=== PATIENT | female | born 1985 | race Caucasian/White ===

== ENCOUNTER 2024-05-06 08:46 | Emergency (ER) | payer OTHER, SELFPAY ==
--- NOTE | ~2024-05-06 | XR_ITS ---
XR toe 4th RT min 2V Ordering provider: Terrie London APRN History: . injury . Comparison: None. FINDINGS: BONES: No acute fracture or dislocation. JOINT SPACES: Normal. SOFT TISSUES: Normal. IMPRESSION: No acute osseous abnormality. Reviewed, dictated and finalized at location A.
--- NOTE | 2024-05-06 08:57 | ED.LOWEXIN ---
HPI - Extremity Injury (Lower) General Chief Complaint: Extremity Injury, Lower Stated Complaint: INJURED R TOE Source: patient Mode of arrival: ambulatory Limitations: no limitations History of Present Illness HPI Narrative: 38 y/o female presented for c/o right 4th toe pain after injury last night. States the toe was tangled in the bed covers, and the 'foot went one way and the toe went the other.' Since then she reports pain 4/10 at rest, 9/10 with walking. Endorses some bruising and swelling to the toe. History of surgery to the right foot. Related Data Home Medications Medication Instructions Recorded Confirmed drospirenone 3 mg-ethinyl 1 tablet PO DAILY 05/06/24 05/06/24 estradiol 0.03 mg tablet lisdexamfetamine 30 mg capsule 30 mg PO DAILY 05/06/24 05/06/24 (Vyvanse) Allergies Allergy/AdvReac Type Severity Reaction Status Date / Time No Known Allergies Allergy Verified 05/06/24 09:04 Review of Systems Review of Systems: CONSTITUTIONAL: Denies body aches, fever, chills CARDIOVASCULAR: Denies chest pain, palpitations, or edema. RESPIRATORY: Denies cough or dyspnea. SKIN: Denies rash, itching, or wounds. MUSCULOSKELETAL: reports right toe pain NEUROLOGIC: Denies numbness, tingling, or weakness. All systems reviewed & are unremarkable except as noted in HPI and below PMFSH Comments At time of signature, I have reviewed and agree with nursing past medical, surgical, social and family history unless otherwise noted. Please see nursing chart for further information. There is no relevant family history pertinent to the presenting complaint Exam Narrative: GENERAL: Well-appearing CHEST: Speaks in full sentences. No respiratory distress. HEART: Regular Right foot has normal strength and sensation, normal range of motion at ankle and toes. Endorses pain with movement of right 4th toe, mild swelling and ecchymosis to the IP joint, tenderness with palpation. No open wounds, or obvious deformity; alignment normal, pulse palpable and equal bilaterally, skin warm, dry, pink. Capillary refill less than 3 seconds. SKIN: Warm, dry NEURO: Alert and oriented x3. PSYCH: Normal mood and affect Course Course Emergency Course: Patient is aware of diagnosis, understands and agrees to treatment plan. Anticipatory guidance given. Patient agrees to follow-up as directed and is aware of reasons to seek care at the emergency department. Portions of this record may have been created with voice recognition software Level of Care: Express Care Visit Vital Signs Vital signs: Vital Signs Temperature 97.4 F L 05/06/24 08:58 Pulse Rate 78 05/06/24 08:58 Respiratory Rate 16 05/06/24 08:58 Blood Pressure 131/93 H 05/06/24 08:58 Pulse Oximetry 100 05/06/24 08:58 Temperature 97.4 F L 05/06/24 08:58 Pulse Rate 78 05/06/24 08:58 Respiratory Rate 16 05/06/24 08:58 Blood Pressure 131/93 H 05/06/24 08:58 Pulse Oximetry 100 05/06/24 08:58 Oxygen Delivery Room Air 05/06/24 09:00 Reviewed MDM - Extremity Injury (Lower) MDM Narrative Medical decision making narrative: Discussed physical exam findings and x-ray of toe with pt . Declines post op shoe stating she has several boots/shoes at home due to previous surgeries. Advised supportive measures and signs/symptoms to go to the ER. Pt is appropriate for outpt treatment and f/u. Differential Diagnosis Differential diagnosis: Likely other (toe fracture, dislocation, contusion) Imaging Data Radiologist's impression: Patient: Dorene Nayak : 1985 MR#: [id number] Age: 38 Acct:[id number] Loc: [facility] ADM Date: 05/06/24Attending Dr: Ordering Physician: Terrie London APRN Date of Service: 05/06/24 Procedure(s): XR toe 4th RT min 2V Accession Number(s): [id number] cc: Bandar,Emmanuel; Terrie London APRN~ XR toe 4th RT min 2V Ordering provider: Terrie London APRN History: . in
[2024-05-06 08:58] VITALS: BP 131/93; PULSE 78; RESP 16; TEMP 36.3; O2SAT 100
== END 2024-05-06 09:34 | disposition home or self-care (01) ==
PROVIDERS: Emergency Provider Nurse Practitioner Family
DX: S93.504A Unspecified sprain of right lesser toe(s), initial encounter (principal); X58.XXXA Exposure to other specified factors, initial encounter; F90.9 Attention-deficit hyperactivity disorder, unspecified type
CPT/HCPCS: 73660; 99203; G0463

== ENCOUNTER 2024-10-30 08:32 | Emergency (ER) | payer OTHER, SELFPAY ==
--- NOTE | ~2024-10-30 | XR_ITS ---
EXAMINATION: XR chest 2V 10/30/2024 09:15 INDICATION: Cough with shortness of breath PROCEDURE: 2 view chest COMPARISON: No prior studies for comparison. FINDINGS: The lungs are clear. The cardiomediastinal silhouette is within normal limits. There are no pleural effusions. There is no pneumothorax suspected. IMPRESSION: 1: NO ACUTE CARDIOPULMONARY DISEASE. Reviewed, dictated and finalized at location A. ENTATION DESIGNER
[2024-10-30 08:50] VITALS: BP 134/96; PULSE 81; RESP 16; TEMP 36.6; O2SAT 100
--- NOTE | 2024-10-30 08:52 | ED.URI ---
HPI - URI/Sore Throat General Chief Complaint: Upper Respiratory Infection Stated Complaint: sorethroat, chest congestion Time Seen by Provider: 10/30/24 08:52 Source: patient Mode of arrival: ambulatory Limitations: no limitations History of Present Illness HPI Narrative: 39-year-old female presents with complaint of cough and congestion for 3-4 days. Started with a sore throat but sore throat has resolved. Afebrile. Reports chest congestion and shortness of breath in the morning. Taking [id number] medications to treat symptoms. All systems reviewed and negative except as noted above. Related Data Home Medications ?Medication ?Instructions ?Recorded ?Confirmed ?Last Taken ?Type drospirenone 3 mg-ethinyl 1 tablet PO DAILY 05/06/24 10/30/24 Unknown History estradiol 0.03 mg tablet lisdexamfetamine 30 mg capsule 30 mg PO DAILY 05/06/24 10/30/24 Unknown History (Vyvanse) Allergies Allergy/AdvReac Type Severity Reaction Status Date / Time No Known Allergies Allergy Verified 10/30/24 08:44 Review of Systems Review of Systems: CONSTITUTIONAL: Denies fever, chills, or sweats. Reports fatigue. EYES: Denies visual changes, redness, or discharge. ENT: Reports rhinorrhea, congestion. Denies sore throat, or otalgia. CARDIOVASCULAR: Denies chest pain, palpitations, or edema. RESPIRATORY: Reports cough and dyspnea with exertion. GASTROINTESTINAL: Denies abdominal pain, nausea, vomiting, or diarrhea. GENITOURINARY: Denies dysuria or hematuria. SKIN: Denies rash or itching. MUSCULOSKELETAL: Denies back pain, joint pain, or myalgia. NEUROLOGIC: Denies headache, numbness, or weakness. PSYCHIATRIC: Denies anxiety or depression. All other systems reviewed are negative, except as documented in HPI. PMFSH Comments At time of signature, agree with nursing past medical, surgical, social and family history. There is no relevant family history pertinent to the presenting complaint. Exam Narrative: GENERAL: This is a well-nourished, well-developed patient, in no apparent distress. HEAD: normocephalic, atraumatic. EYES: PERRL. Sclera clear/white. Vision is grossly intact. EARS: External ears normal, auditory canals clear and without drainage, TMs normal without perforation. Hearing grossly intact. NOSE: External nose normal mild congestion with clear nasal drainage THROAT: Mucous membranes moist, mild erythema with clear postnasal drainage. No swelling or exudates. NECK: Neck supple, non-tender without lymphadenopathy, masses or thyromegaly. CARDIOVASCULAR: Regular rate and rhythm without murmurs, gallops, or rubs. RESPIRATORY: Clear to auscultation. Breath sounds equal bilaterally. No wheezes, rales, or rhonchi. SKIN: warm, Dry, intact with no suspicious lesions or rash, good texture and turgor. NEURO: awake, alert, and oriented to person, place and time. There were no obvious focal neurologic abnormalities. EXTREMITIES: No joint tenderness, effusion, or edema noted. Course Course Level of Care: Express Care Visit Vital Signs Vital signs: Vital Signs Temperature 36.6 C 10/30/24 08:50 Pulse Rate 81 10/30/24 08:50 Respiratory Rate 16 10/30/24 08:50 Blood Pressure 134/96 H 10/30/24 08:50 Pulse Oximetry 100 10/30/24 08:50 Temperature 36.6 C 10/30/24 08:50 Pulse Rate 81 10/30/24 08:50 Respiratory Rate 16 10/30/24 08:50 Blood Pressure 134/96 H 10/30/24 08:50 Pulse Oximetry 100 10/30/24 08:50 Reviewed MDM - URI/Sore Throat MDM Narrative Medical decision making narrative: Negative COVID, influenza and strep testing. Strep culture ordered. Chest x-ray negative. Recommend patient continue [id number] medications to treat viral symptoms. Well-appearing, nontoxic. Patient is aware of diagnosis, understands and agrees to treatment plan. Anticipatory guidance given. Patient agrees to follow-up as directed and is aware of reasons to seek care at the emergency department. Portions of this record may have been created with voice recognition software Differential Diagnosis Differential diagnosis: Likely upper respiratory infection, sinusitis, viral infection and influenza Lab Data Labs: Lab Results 10/30/24 10/30/24 Range/Units 08:56 09:04 POC Influenza A Ag Negative (Negative) POC Influenza B Ag Negative (Negative) POC SARS CoV-2 Ag Negative (Negative) POC Grp A Strep Screen Negative (Negative) Imaging Data My impression: Agree with radiologist Radiologist's impression: EXAMINATION: XR chest 2V 10/30/2024 09:15 INDICATION: Cough with shortness of breath PROCEDURE: 2 view chest COMPARISON: No prior studies for comparison. FINDINGS: The lungs are clear. The cardiomediastinal silhouette is within normal limits. There are no pleural effusions. There is no pneumothorax suspected. IMPRESSION: 1: NO ACUTE CARDIOPULMONARY DISEASE. Discharge Plan Discharge Clinical Impression: Viral upper respiratory tract infection with cough Patient Disposition: Home, Self-Care Condition: Stable Instructions: Upper Respiratory Infection (ED) Additional Instructions: Your COVID, influenza and strep test were negative today. Your chest x-ray was normal. Your symptoms are viral and may last 10-14 days. Take medications as prescribed. Take ffsj-hwn-[id number] Mucinex as directed on packaging. Drink at least 64 oz water a day. Follow-up with your primary care physician if symptoms are not improving. Patient Language: Greenlandic Prescriptions: New benzonatate 200 mg capsule 200 mg PO TID PRN (Reason: cough) Qty: 20 0RF methylprednisolone [Medrol (Cedric)] 4 mg tablets,dose pack See Rx Instructions PO .COMPLEX Qty: 21 0RF Rx Instructions: orally per package directions fluticasone propionate [Flonase Allergy Relief] 50 mcg/actuation spray,suspension 1 spray intranasal BID Qty: 16 0RF Rx Instructions: administer into each nostril No Action drospirenone-ethinyl estradiol 3-0.03 mg tablet 1 tablet PO DAILY lisdexamfetamine [Vyvanse] 30 mg capsule 30 mg PO DAILY Follow-up/Referrals: Bandar,Emmanuel [Other] Time of Disposition: 09:34
[2024-10-30 08:58] LABS: EDSTREPNEGPOS1 Negative (Negative)
[2024-10-30 09:07] LABS: EDCOVIDSCREEN Negative (Negative); EDINFLUASCREEN Negative (Negative); EDINFLUBSCREEN Negative (Negative)
== END 2024-10-30 09:39 | disposition home or self-care (01) ==
PROVIDERS: Emergency Provider Nurse Practitioner Family
DX: J06.9 Acute upper respiratory infection, unspecified (principal); Z20.822 Contact with and (suspected) exposure to COVID-19
CPT/HCPCS: 71046; 87081; 87426; 87804; 87880; 99213; G0463

== ENCOUNTER 2025-06-28 09:00 | Emergency (ER) | payer OTHER, SELFPAY ==
--- NOTE | ~2025-06-28 | XR_ITS ---
EXAMINATION: XR foot LT min 3V DATE: 06/28/2025 09:20 INDICATION: Lateral left foot pain TECHNIQUE: Dorsoplantar, two oblique and lateral views of the left foot were obtained. COMPARISON: None. FINDINGS: Corticated ossicle at the lateral base of the fifth metatarsal. Bone alignment is normal. No acute fracture. Joint spaces are normal. No cortical erosions or periosteal reaction. There is soft tissue swelling overlying the base of the fifth metatarsal. IMPRESSION: 1. Corticated ossicle at the lateral base of the fifth metatarsal which could represent a chronic nonunited avulsion fracture fragment, enthesopathic ossicle or chronic unfused apophysis. No acute osseous abnormality. Reviewed, dictated and finalized at location A. IMPRESSION: 1. Corticated ossicle at the lateral base of the fifth metatarsal which could r epresent a chronic nonunited avulsion fracture fragment, enthesopathic ossicle or chronic unfused apophysis. No acute osseous abnormality.
--- NOTE | 2025-06-28 09:10 | ED.LOWEXIN ---
HPI - Extremity Injury (Lower) General Chief Complaint: Extremity Injury, Lower Stated Complaint: INJURED L FOOT Time Seen by Provider: 06/28/25 10:08 Source: patient and RN notes reviewed Mode of arrival: ambulatory Limitations: no limitations History of Present Illness HPI Narrative: 39-year-old female presents with concern for left lateral foot pain. She reports she was hiking this weekend and running steps. She did not have any direct injury or trauma but she began having pain afterwards. She reports she had a stress fracture in her right foot in the same area she is having pain in her left. She is elevating and using ice. She denies decreased strength, sensation, range of motion the foot or digits. MD complaint: foot injury Related Data Home Medications ?Medication ?Instructions ?Recorded ?Confirmed ?Last Taken ?Type drospirenone 3 mg-ethinyl 1 tablet PO DAILY 05/06/24 10/30/24 Unknown History estradiol 0.03 mg tablet lisdexamfetamine 30 mg capsule 30 mg PO DAILY 05/06/24 10/30/24 Unknown History (Mohsen) Allergies Allergy/AdvReac Type Severity Reaction Status Date / Time No Known Allergies Allergy Verified 10/30/24 08:44 Review of Systems Review of Systems: CONSTITUTIONAL: Denies malaise, chills, sweats, or fever. SKIN: Denies rash or itching, open skin, laceration, abrasion, redness, warmth, swelling. MUSCULOSKELETAL: Reports left foot pain NEUROLOGIC: Denies numbness, weakness All systems reviewed & are unremarkable except as noted in HPI and below PMFSH Comments At time of signature, agree with nursing past medical, surgical, social and family history. There is no relevant family history pertinent to the presenting complaint Exam Narrative: GENERAL: Well-appearing, well-nourished, and in no acute distress. HEAD: Normocephalic, atraumatic. EYES: PERRLA, conjunctivae clear NECK: Supple. CHEST: Speaks in full sentences. No respiratory distress. HEART: Regular rate and rhythm. Normal and equal peripheral pulses. EXTREMITIES: Left ankle, foot, digits have grossly normal strength and sensation, grossly normal range of motion. No edema or ecchymosis. Normal sensation with sensitivity to light touch and pain. Lateral foot tenderness. No open wounds, no skin tenting, no devitalized tissue or atrophy, no trophic changes, no obvious deformity, alignment normal, nearby joints and structures intact. Distal pulses palpable and equal bilaterally, skin warm, dry, pink. Capillary refill less than 3 seconds. SKIN: Warm, dry, no rash. NEURO: Alert and oriented x3. PSYCH: Normal mood and affect Course Course Emergency Course: Patient is aware of diagnosis, understands and agrees to treatment plan. Anticipatory guidance given. Patient agrees to follow-up as directed and is aware of reasons to seek care at the emergency department. Portions of this record may have been created with voice recognition software Level of Care: Express Care Visit Vital Signs Vital signs: Reviewed. MDM - Extremity Injury (Lower) MDM Narrative Medical decision making narrative: The patient was evaluated by myself in the express care. History is obtained from patient who is an independent historian and physical exam was performed.? Available medical records were reviewed at this time. ? Exam findings show no acute concerns or changes; patient is non-toxic appearing and is in no distress. Patient is appropriate for outpatient treatment and follow-up. ? I have evaluated and discussed social determinants of health with the patient that could potentially impact subsequent diagnosis and treatment plans. ? Patients injury and pain is consistent with musculoskeletal etiology. No signs of neurological or vascular compromise on exam. Compartments and tissues are soft without signs of compartment syndrome. Pain is felt appropriate for further evaluation on an outpatient basis. Imaging Data My impression: Images reviewed, interpreted by radiologist, agree, see report. Radiologist's impression: EXAMINATION: XR foot LT min 3V DATE: 06/28/2025 09:20 INDICATION: Lateral left foot pain TECHNIQUE: Dorsoplantar, two oblique and lateral views of the left foot were obtained. COMPARISON: None. FINDINGS: Corticated ossicle at the lateral base of the fifth metatarsal. Bone alignment is normal. No acute fracture. Joint spaces are normal. No cortical erosions or periosteal reaction. There is soft tissue swelling overlying the base of the fifth metatarsal. IMPRESSION: 1. Corticated ossicle at the lateral base of the fifth metatarsal which could represent a chronic nonunited avulsion fracture fragment, enthesopathic ossicle or chronic unfused apophysis. No acute osseous abnormality. Critical Care Time Critical Care Time Critical Care Time: No Discharge Plan Discharge Clinical Impression: Acute pain of left foot Patient Disposition: Home Condition: Stable Instructions: Antibiotic Form Additional Instructions: Avoid activities that cause pain until the pain subsides. Ice to the area 20-30 minutes 4-6 times a day Elevate above heart Orthopedics you as directed Ibuprofen regularly for the next 2-3 days for the inflammation Follow up with your primary care provider if the condition is not improving within 1 week. If the condition worsens with numbness, tingling, decrease sensation with weakness seek treatment in the emergency room immediately. Patient Language: South Sudanese Prescriptions: No Action benzonatate 200 mg capsule 200 mg PO TID PRN (Reason: cough) Qty: 20 0RF methylprednisolone [Medrol (Cedric)] 4 mg tablets,dose pack See Rx Instructions PO .COMPLEX Qty: 21 0RF Rx Instructions: orally per package directions fluticasone propionate [Flonase Allergy Relief] 50 mcg/actuation spray,suspension 1 spray intranasal BID Qty: 16 0RF Rx Instructions: administer into each nostril drospirenone-ethinyl estradiol 3-0.03 mg tablet 1 tablet PO DAILY lisdexamfetamine [Vyvanse] 30 mg capsule 30 mg PO DAILY Follow-up/Referrals: Bandar,Emmanuel [Other] Elier King MD [Physician, Orthopedics] Time of Disposition: 10:17
[2025-06-28 09:11] VITALS: BP 123/96; PULSE 78; RESP 16; TEMP 36.5; O2SAT 100
== END 2025-06-28 10:24 | disposition home or self-care (01) ==
PROVIDERS: Emergency Provider Nurse Practitioner
DX: M79.672 Pain in left foot (principal)
CPT/HCPCS: 73630; 99213; G0463

== ENCOUNTER 2025-10-01 15:43 | Outpatient (CLI) | payer OTHER, SELFPAY ==
--- NOTE | ~2025-10-01 | MR_ITS ---
EXAMINATION: MR foot LT wo con DATE: 10/01/2025 16:35 INDICATION: Peroneal tendinitis with possible fracture at the left foot TECHNIQUE: Magnetic resonance imaging (MRI) of the left mid/hindfoot and ankle was performed without intravenous contrast. Sequences included sagittal, coronal, and axial proton-density weighted fast spin echo without and with fat saturation. COMPARISON: Radiographs dated 06/28/2025 FINDINGS: Medial ankle ligaments: Deep and superficial deltoid ligaments as well as the spring ligament are normal. Lateral ankle ligaments: The anterior and posterior inferior tibiofibular ligaments are normal. The anterior talofibular, calcaneofibular and posterior talofibular ligaments are normal. Tendons: Achilles tendon is normal. The peroneus longus and brevis tendons are normal. The tibialis anterior and extensor hallucis longus and extensor digitorum longus tendons are normal. The tibialis posterior, flexor digitorum longus and flexor hallucis longus tendons are normal. There is increased fluid extending along the flexor hallucis longus longus tendon sheath from level of the myotendinous junction distally to the level of the master knot of [place]. Plantar fascia: Plantar aponeurosis is normal. 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 There is marrow edema at both sides of the fracture plane with low signal intensity cortication most likely fracture plane is appreciated on the prior radiographs. There is intra-articular extension with no significant fracture gap or incongruity along the articular surface at the base of the fifth metatarsal. Bone marrow signal is otherwise normal throughout. No other fractures or pathologic marrow replacing process. Joint spaces are normal.. Fluid: Aside from increased fluid in the flexor hallucis longus longus tendon sheath there are no other abnormal fluid collections. Physiologic amount fluid in the joint spaces. IMPRESSION: 1. Reactive edema along both sides of a chronic nonunited, nondisplaced intra- articular avulsion fractures at the lateral base of the fifth metatarsal. 2. Increased fluid consistent with tenosynovitis along the flexor hallux longus tendon sheath. Reviewed, dictated and finalized at location A. TURE REWINDER IMPRESSION: 1. Reactive edema along both sides of a chronic nonunited, nondisplaced intra-a rticular avulsion fractures at the lateral base of the fifth metatarsal. 2. Increased fluid consistent with tenosynovitis along the flexor hallux longus tendon sheath.
--- OUTSIDE RECORDS SUMMARY | 2025-10-01 15:56 | XMS_ITS | Clinical Summary ---
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 Gender Identity Not on file Sexual Orientation Not on file Plan of Treatment Health Maintenance Due Date Last Done Comments Cervical Cancer Screening Pa p Smear (Age 30 to 64) Every 3 Years 1987 Annual Physical 1990 Hepatitis C 2005 DTaP, Tdap and Td Vaccines ( 1 - Tdap) 2006 Hepatitis B Vaccines (1 of 3 - 19+ 3-dose series) 2006 HPV Vaccines (1 - 3-dose SCD M series) 2014 Cervical Cancer Screening Pa p with HPV Testing (Age 30 to 64) Every 5 Years 2017 Cervical Cancer Screening with HPV 2017 COVID-19 Vaccine (2024-2 6 season) 2025 Influenza Adult (#1) 2025 Hepatitis A Vaccines Aged Out No long er eligible based on patient's age to complete this topic Meningococcal B Vaccine Aged Out No l onger eligible based on patient's age to complete this topic Meningococcal Vaccine Aged Out No ofelia tatiana eligible based on patient's age to complete this topic Pneumococcal Vaccine: Pediat rics (0 to 5 Years) and At-Risk Patients (6 to 49 Years) Aged Out No longer eligible b ased on patient's age to complete this topic RSV Immunizations Under 20 Months Aged Out No longer eligible based on patient's age to complete this topic
--- OUTSIDE RECORDS SUMMARY | 2025-10-01 15:56 | XMS_ITS | Clinical Summary ---
Author Organization [facility] [place] [address] Address [address] [place] [id number] Care Team Providers Care German Teacher Name Role Phone No, Physician Primary Care Provider [phone] Allergies No known active allergies Medications drospirenone-et hinyl estradioL (CHRISTI,OCELLA) 3-0.03 mg per tablet Take by mouth daily as needed 2 Active Vyvanse 30 mg capsule Take 1 capsule (30 mg total) by mouth daily 2 Active albuterol HFA (Ventolin HFA) 90 mcg/actuation inhaler Inhale 2 puffs every 4 (four) hours as needed for wheezing or shortness of breath 8 g 2 Active Active Problems Problem Noted Date Diagnosed Date Attention deficit hyperactiv ity disorder (ADHD), 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 Social History Tobacco Use Types Packs/Day Years Used Date Smoking Tobacco: Never Assessed Comments Unknown Sex and Gender Information Value Date Recorded Sex Assigned at Not on file Legal Sex Female 4:05 AM CDT Gender Identity Not on file Sexual Orientation Not on file Last Filed Vital Signs Vital Sign Reading Time Taken Comments Blood Pressure 114/68 12/03/2023 8:19 AM SLOOP CAPTAIN Pulse 76 12/03/2023 8:19 AM SLOOP CAPTAIN Temperature 36.8 C (98.3 F) 12/03/2023 8:19 AM SLOOP CAPTAIN Respiratory Rate 22 12/03/2023 8:19 AM SLOOP CAPTAIN Oxygen Saturation 99% 12/03/2023 8:19 AM SLOOP CAPTAIN Inhaled Oxygen Concentration - - Weight 85.7 kg (189 lb) 12/03/2023 8:19 AM SLOOP CAPTAIN Height 170.2 cm (5' 7) 12/03/2023 8:19 AM SLOOP CAPTAIN Body Mass Index 29.6 12/03/2023 8:19 AM SLOOP CAPTAIN Plan of Treatment Health Maintenance Due Date Last Done Comments Cervical Cancer Screening 1987 Depression Screening 1987 Hepatitis C Screening 1987 DTaP/Tdap/Td Vaccine (1 - Tdap) 1998 Varicella Vaccines (1 of 2 - 13+ 2-dose series) 2000 Hepatitis B Screening 2005 Regular Well Visit/Exam 18-64 2005 HPV Vaccines (1 - 3-dose SCD M series) 2014 Covid-19 Vaccine ( - 2024-2 6 season) 2025 07/29/2021, 01/27/2021, 01/06/2021 Influenza Vaccine (#1) 2025 Pneumococcal vaccine <65 Aged Out No longer eligible based on patient's age to complete this topic [place] [place] [address] [employer] [facility] CHOICE PLUS Care Teams German Teacher Relationship Specialty Start Date End Date No, Physician PCP - General 03/09/22
--- OUTSIDE RECORDS SUMMARY | 2025-10-01 15:56 | XMS_ITS | Clinical Summary ---
Author Organization [facility] Address [address] [place] [address] Care Team Providers Care Bindery Machine Tender Name Role Phone Reece Larson MD Primary Care Provider Source Comments [facility],non-owned Affiliates and Associated Physician Practices is amultiple site organization consisting of ambulatory clinics and hospital sitesin [place], [place], [place] and [place]. This disclosure is being madepursuant to the Care Everywhere program and may not contain all information available regarding this patient. Last updated 18.[facility] Allergies No known active allergies Medications * Be aware that medications may not be up to date on this document. Alwaysverify current medications with the patient. lisdexamfetamin e (VYVANSE) 30 MG capsule Take 30 mg by mouth every morning Active Drospirenone-Et hinyl Estradiol (CAROL PO) Active fluticasone propionate (FLONASE) 50 MCG/ACT nasal spray [place] 2 sprays into each nostril once daily 1 bottles 10/29/2017 Active albuterol HFA (VENTOLIN HFA) 108 (90 BASE) MCG/ACT inhaler Inhale 2 puffs by mouth every 6 hours as needed for Wheezing or Cough 1 Inhaler 2 10/29/2017 Active Active Problems No known active problems Social History Tobacco Use Types Packs/Day Years Used Date Smoking Tobacco: Former Smokeless Tobacco: Never Comments No Sex and Gender Information Value Date Recorded Sex Assigned at Not on file 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 Gender Identity Not on file Sexual Orientation Not on file Last Filed Vital Signs Vital Sign Reading Time Taken Comments Blood Pressure 132/88 10/29/2017 10:47 AM THIRD GRADE TEACHER Pulse 84 10/29/2017 10:47 AM THIRD GRADE TEACHER Temperature 36.7 C (98.1 F) 10/29/2017 10:47 AM THIRD GRADE TEACHER Respiratory Rate 19 10/29/2017 10:47 AM THIRD GRADE TEACHER Oxygen Saturation 96% 10/29/2017 10:47 AM THIRD GRADE TEACHER Inhaled Oxygen Concentration - - Weight 85.3 kg (188 lb) 10/29/2017 10:47 AM THIRD GRADE TEACHER Height 170.2 cm (5' 7) 10/29/2017 10:47 AM THIRD GRADE TEACHER Body Mass Index 29.44 10/29/2017 10:47 AM THIRD GRADE TEACHER Plan of Treatment Health Maintenance Due Date Last Done Comments HIV SCREENING 2002 HEPATITIS C SCREENING 08/29/2005 DTAP/TDAP/TD VACCINES (1 - Tdap) 2006 HEPATITIS B VACCINE (1 of 3 - 19+ 3-dose series) 2006 HPV VACCINE (1 - 3-dose SCDM series) 2014 DEPRESSION SCREENING 10/28/2024 COVID-19 VACCINE (1 - 2024-2 6 season) 2025 INFLUENZA VACCINE (#1) 2025 ZOSTER VACCINE (1 of 2) 2037 HIB VACCINE Aged Out No longer eligi ble based on patient's age to complete this topic MENINGOCOCCAL (Group B) VACC INE SHARED DECISION-MAKING Aged Out No longer eligibl e based on patient's age to complete this topic MENINGOCOCCAL GROUPS A/C/Y/W VACCINE Aged Out No longer eligible b ased on patient's age to complete this topic PNEUMOCOCCAL VACCINE Aged Out No long er eligible based on patient's age to complete this topic Insurance [employer] Care Teams Bindery Machine Tender Relationship Specialty Start Date End Date Reece Larson MD [address] [place] [address] [id number] PCP - General Family Medicine 10/29/17
--- OUTSIDE RECORDS SUMMARY | 2025-10-01 15:56 | XMS_ITS | Clinical Summary ---
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 Gender Identity Not on file Sexual Orientation Not on file Plan of Treatment Health Maintenance Due Date Last Done Comments Hepatitis C Virus (HCV) Screening 1987 TdaP Immunization 1987 Hepatitis B Immunization (1 of 3 - 19+ 3-dose series) 2006 Pap Smear 2008 Human Papillomavirus (HPV) Immunization (1 - 3-dose SCDM series) 2014 Cervical Cancer Screening (CCS) 2017 HPV/Cotest 2017 Influenza Immunization (#1) 2025 SARS-COV-2 Immunization ( season) 2025 Respiratory Syncytial Virus (RSV) Immunization (Adult) (1 - 1-dose 75+ series) 2062 Meningococcal Immunization (ACWY) Aged Out No longer eligible based on patient's age to complete this topic Pneumococcal Immunization Combined Aged Out No longer eligible based on patient's age to complete this topic Rotavirus Immunization Aged Out No lo nger eligible based on patient's age to complete this topic
== END 2025-10-01 15:44 | disposition home or self-care (01) ==
PROVIDERS: Visit Provider Podiatrist Foot & Ankle Surgery
DX: S92.353A Displaced fracture of fifth metatarsal bone, unspecified foot, initial encounter for closed fracture (principal); X58.XXXA Exposure to other specified factors, initial encounter
CPT/HCPCS: 73718